=== PATIENT | female | born 1945 | race Caucasian/White ===

== ENCOUNTER 2018-10-17 07:47 | Inpatient (IN) ==
--- NOTE | 2018-10-12 14:12 | MH ---
cc: Zina Gutierrez MD DATE OF ADMISSION: 10/17/2018 ADMITTING DIAGNOSIS: Osteoarthritic degeneration left knee, now being admitted for left total knee arthroplasty. HISTORY OF PRESENT ILLNESS: This pleasant 73-year-old female is being admitted today for left total knee arthroplasty due to severe painful osteoarthritic degeneration of the left knee. OTHER PAST HISTORY: She has already had a right total knee. She has a history of hypertension. CURRENT MEDICATIONS: 1. Diclofenac stopped before surgery. 2. Lisinopril. REVIEW OF SYSTEMS: Noncontributory. FAMILY HISTORY: Noncontributory. SOCIAL HISTORY: She does not smoke or drink. ALLERGIES: NO KNOWN ALLERGIES. PHYSICAL EXAMINATION: GENERAL: We find a 73-year-old female well-developed, well nourished, well oriented x 3, complaining of pain in the left knee. VITAL SIGNS: Blood pressure 130/78, pulse 64 and regular, respirations 16, temperature 97.7, pulse oximetry 96% on room air. HEENT: Eyes PERRLA, EOMI. Ears, nose, mouth clear. NECK: Supple. LUNGS: Clear. HEART: Regular rate. ABDOMEN: Soft, positive bowel sounds, nontender. EXTREMITIES: Left knee has crepitance on range of motion. She is neurovascularly intact to her toes. IMPRESSION: Severe painful osteoarthritic degeneration of the left knee. PLAN: Admission for left total knee arthroplasty today. The patient plans on going to rehabilitation after her surgical stay in the hospital. MD KATY Holland/zeenat , 01:45 PM , 01:51 PM
[2018-10-17] MEDS ORDERED: Metoprolol Tartrate 25 MG Tablet PO ONE (08:42)
[2018-10-17] MEDS ORDERED: Chlorhexidine Gluconate 2% 1 Pack (2 Cloths) TOPICAL ONE (08:42)
[2018-10-17] MEDS ORDERED: Chlorhexidine 4% Topical 120 APPLIC/120 ML Bottle TOPICAL SCH (08:45)
[2018-10-17] MEDS ORDERED: Post-op Orders (for Pharmacy) OTHER STA (08:47)
[2018-10-17] MEDS ORDERED: Bisacodyl 10 MG Supp RECTAL PRN (08:47)
[2018-10-17] MEDS ORDERED: Vancomycin Inj 1,000 MG in Sodium Chlor 0.9% Inj 250 ML IV.SIG SCH (09:00)
[2018-10-17] MEDS ORDERED: Sodium Chlor 0.9% Inj 80 ML, Bupivacaine Liposo PF 1.3% Inj 20 ML, Bupivacaine PF 0.25%... P-ARTICULR SCH ×3 (09:00)
[2018-10-17] MEDS ORDERED: Sodium Chlor 0.9% Inj 500 ML IV.SIG SCH (09:00)
[2018-10-17] MEDS ORDERED: Non-Formulary Drug (Coq10 (Ubiquinol) [Coq10 (Ubiquinol)] 200 MG) PO SCH (09:00)
[2018-10-17] MEDS ORDERED: MILK THISTLE 300 MG PO SCH (09:00)
[2018-10-17] MEDS ORDERED: Non-Formulary Drug (Glucosamine-Chondroitin [Glucosamine-Chondroitin] 1 CAP) PO SCH (09:00)
[2018-10-17] MEDS ORDERED: Non-Formulary Drug (Omega 3-Dha-Epa-Fish Oil [Omega-3] 1 CAP) PO SCH (09:00)
[2018-10-17] MEDS ORDERED: ceFAZolin 2 GM Premix Inj 2 GM/50 ML PIGGYBACK IV.SIG SCH (09:00)
[2018-10-17] MEDS ORDERED: TRANEXAMIC ACID IV.SIG SCH ×2 (09:00→10:00)
[2018-10-17] MEDS ORDERED: Calcium Carbonate 500 MG Tablet PO SCH (09:00)
[2018-10-17] MEDS ORDERED: SODIUM CHLOR 0.9% IV.SIG SCH ×2 (09:00→10:00)
[2018-10-17] MEDS ORDERED: [UNRECOGNIZED DRUG - OTHER] PO SCH (09:00)
[2018-10-17] MEDS ORDERED: TURMERIC PO SCH (09:00)
[2018-10-17] MEDS ORDERED: [UNRECOGNIZED DRUG - OTHER] PO SCH (09:00)
[2018-10-17] MEDS ORDERED: Morphine Sulfate Inj 2 MG/ML Vial IV.PUSH PRN (09:15)
[2018-10-17] MEDS ORDERED: Neostigmine Inj 5 MG/5 ML Syringe IV.PUSH ONE (12:12)
[2018-10-17] MEDS ORDERED: Lidocaine PF 1% Inj 5 ML Syringe I-DERMAL ONE (12:12)
[2018-10-17] MEDS ORDERED: Glycopyrrolate Inj 1 MG/5 ML Syringe IV.PUSH ONE (12:12)
[2018-10-17] MEDS ORDERED: Tranexamic Acid Inj 1,000 MG in Sodium Chlor 0.9% Inj 100 ML IV.SIG SCH (13:00)
[2018-10-17] MEDS ORDERED: fentaNYL Citrate Inj 100 MCG/2 ML Ampul ONE (14:49)
--- NOTE | 2018-10-17 15:02 | XR ---
EXAM DATE: 10/17/2018 2:51 PM EST AGE/SEX: 73 years / Female INDICATIONS: Post op left total knee replacement. CLINICAL DATA: This is the patient's initial encounter. Patient reports that signs and symptoms have been present for 1 day and indicates a pain score of Nonresponsive. MEDICAL/SURGICAL HISTORY: Non-responsive. Non-responsive. COMPARISON: . FINDINGS: Left knee arthroplasty in place. Arthroplasty components are in anatomic alignment. No significant javier ny fracture. Immediate postsurgical soft tissue changes. CONCLUSION: 1. Left knee arthroplasty in near-anatomic alignment without acute fracture. Electronically signed by: David Garcia MD 10/17/2018 3:00 PM EST
[2018-10-17] MEDS ORDERED: *Ondansetron Inj 4 MG/2 ML Vial PERIprocedural Use ONLY ONE (15:03)
[2018-10-17] MEDS ORDERED: *morphine SULFATE 4 MG/ML PERIprocedure ONLY ONE ×2 (15:07→15:15)
[2018-10-17] MEDS ORDERED: *Promethazine Inj 25 MG/ML Vial PERIprocedural use ONLY ONE (15:16)
--- NOTE | 2018-10-17 15:21 | MP ---
cc: Zina Gutierrez MD DATE OF OPERATION: 10/17/2018 PREOPERATIVE DIAGNOSIS: Osteoarthritic degeneration, left knee POSTOPERATIVE DIAGNOSIS: Osteoarthritic degeneration, left knee. SURGERY PERFORMED: Left total knee arthroplasty using Consensus components, size 4 femur, 4 tibia, and 2 patella with 2 batches of antibiotic cement along with a 14 insert. SURGEON: Zina Gutierrez MD CHEMIST INSTRUMENTATION: Sita Toledo APRN ANESTHESIA: General intubation. PROCEDURE: After successful induction of anesthesia, the patient is placed on the operating room table in the supine position. The knee is prepped and draped in the usual manner. A tourniquet is inflated at the upper thigh and set to 300 mmHg pressure after exsanguination of the lower extremity. A longitudinal incision is made extending from 3 inches proximal to the superior pole of the patella, across the patella in longitudinal fashion, and down past the insertion of the tibial tubercle into the proximal tibia. The incision is carried down through subcutaneous tissue along the medial aspect of the patella and retinaculum, down through the capsule to expose the knee joint. The patella and patellar tendon are freed up enough to allow the patella to be inverted and retracted off the lateral side of the knee joint. The knee joint is left exposed. Small osteophytes are removed. All soft tissue is removed to allow proper position of the femoral and tibial cutting jig guide. The first femoral jig is then inserted along the distal end of the femur after first measuring to decide whether this is a small, medium, or large component. The notch is then drilled and the tibial cutting guide inserted into the femoral cutting guide, along with the ankle brace to allow for proper measurement of the tibial cutting surface that needed to be resected. Pins are inserted into the tibial cutting jig and femoral cutting jig to hold them in place. An oscillating saw is then used to resect the surface of the tibia. The surface of the tibia is then completely removed using sharp and blunt dissection. The anterior and posterior cuts of the femur are then made as well using an oscillating saw through the cutting guide. All guides are then removed and the varus/valgus angulation cutting guide applied to the femur for proper measurement of the proper amount of valgus. The anterior cutting guide for the femur is then inserted at the anterior femoral cuts made. Next, the first block trial is inserted into the femur to allow for proper condyle drill holes to be made which are then made followed by removal of the bone between the condyles using an oscillating saw as well as the bone removed at the most posterior surface of the condyle. After this, this guide is removed and the chamfer cuts made using the chamfer cutting guide from both anterior and posterior. Next, the femoral trial is then inserted, the tibial surface reflected anterior to expose the tibial surface and a tibial stem guide is inserted after first measuring for a standard, standard plus, large, or large plus surface to be used. After the stem is impacted the trial tibial surface is applied followed by the trial meniscal components. After full range of motion is found with the appropriate length meniscal components varying the patella is prepared by resecting the posterior aspect of the patella using an oscillating saw, inserting a trial. The trial is then removed and the cruciate cutting guide applied using the bur to cut the cruciate cuts. After cruciate cuts are made all trials are removed. The wound is irrigated copiously with antibiotic solution and Water Pik and the actual components inserted into place using the aforementioned components. After the cement has hardened and the components are found to have full range of motion with no instability, the tourniquet is deflated, total tourniquet time being 42 minutes at 300 mmHg pressure. The wound again is irrigated copiously with antibiotic solution, meticulous hemostasis achieved. Two Autovac tubes inserted, followed by closure of the deep fascia with both running and interrupted #1 Vicryl suture, subcutaneous tissue approximated using interrupted 2-0 Vicryl sutures, and skin approximated with andra. Wet and dry dressing is applied to the wound followed by Xeroform gauze, sterile dressing and knee immobilizer. The patient tolerated the procedure well and left the Operating Room in satisfactory condition. ESTIMATED BLOOD LOSS: 100 mL. COUNTS: Sponge and suture counts were correct. COMPONENTS: The components used were Consensus components, size 4 femur, 4 tibia, and 2 patella with 2 batches of antibiotic cement along with a 14 insert. Meticulous hemostasis achieved and 120 mL of mixture of Exparel, normal saline, 0.25% Marcaine plain inserted around the knee joint for extra pain control. Deep fascia approximated with a running #2 Quill. Subcutaneous tissue approximated with a running 2-0 and 3-0 Quill and a Prineo dressing and knee immobilizer. No drain utilized. COUNTS: Sponge and suture counts were correct. The patient tolerated the procedure well and left the operating room in satisfactory condition. Sita Toledo APRN was present during the entire procedure to include patient positioning and the procedure. The medical necessity of a nurse practitioner programs assistant was indicated in this case due to the surgical complexity of the case itself. During the surgical case, the surgical nurse was working the back table while my neurosurgical nurse ELVIS was directly assisting me. J. MD KATY Buckley/es , 02:33 PM , 02:40 PM
[2018-10-17] MEDS: Multivitamin/Minerals Therapeutic Tablet PO SCH ×2 (16:20→20:58)
[2018-10-17] MEDS: Senna/Docusate Sodium 8.6/50 MG Tablet PO SCH ×2 (16:20→20:58)
[2018-10-17] MEDS: Calcium Carbonate 500 MG Tablet PO SCH ×2 (16:21→18:10)
[2018-10-17] MEDS: ceFAZolin 1 GM Premix Inj 1 GM/50 ML FROZ.PIGGY IV.SIG SCH (18:09)
[2018-10-17] MEDS: Lactobacillus Acidophilus/L. Spores Tablet PO SCH (18:10)
[2018-10-17] MEDS ORDERED: Lisinopril 20 MG Tablet PO SCH (21:00)
[2018-10-18] MEDS: ceFAZolin 1 GM Premix Inj 1 GM/50 ML FROZ.PIGGY IV.SIG SCH ×2 (01:10→06:46)
[2018-10-18 06:50] LABS: Hematocrit 38.5 % (35.0-46.0); Hemoglobin 12.9 gm/dL (11.6-15.3)
--- NOTE | 2018-10-18 08:16 | P.PNOP ---
Subjective Interval history: Pt comfortable today without complaints. Physical Exam Vital signs: Vital Signs 10/17/18 08:41 10/17/18 09:43 10/17/18 14:39 Temperature 97.7 F 97.8 F Pulse Rate 74 63 84 Respiratory Rate 16 14 Blood Pressure 140/77 150/68 H Pulse Oximetry 98 97 95 10/17/18 14:45 10/17/18 15:00 10/17/18 15:15 Temperature Pulse Rate 82 78 78 Respiratory Rate 14 14 16 Blood Pressure 147/65 H 138/76 132/70 Pulse Oximetry 95 95 94 L 10/17/18 15:30 10/17/18 15:45 10/17/18 16:40 Temperature 98.1 F 97.7 F Pulse Rate 75 74 66 Respiratory Rate 16 16 18 Blood Pressure 108/78 128/68 129/59 L Pulse Oximetry 94 L 95 94 L 10/17/18 21:08 10/18/18 00:00 10/18/18 04:00 Temperature 97.6 F 97.5 F L 97.9 F Pulse Rate 60 67 70 Respiratory Rate 18 18 18 Blood Pressure 144/64 H 135/63 138/63 Pulse Oximetry 93 L 93 L Intake & Output 10/17/18 10/18/18 10/18/18 18:59 06:59 18:59 Intake Total 1529 / 1529 1131 / 1131 Output Total 100 / 100 120 / 120 Balance 1429 / 1429 1011 / 1011 Weight 78.6 kg 88.6 kg Intake: IV 189 / 189 1021 / 1021 LR 1000 mL Inj 1,000 ML @ 80 29 / 29 971 / 971 mls/hr IV.CONT .[id number] [facility] Rx# :[id number] Cyklokapron Inj 1,000 MG In NS 110 / 110 Inj 100 ML @ 200 mls/hr IV.SIG ONCE [facility] Rx#:[id number] Ancef 1 GM Premix Inj 1 gm In 50 / 50 50 / 50 50 ml @ 100 mls/hr IV.SIG Q6H [facility] Rx#:[id number] Oral 240 / 240 110 / 110 Anesthesia Amount 1100 / 1100 Output: Urine 0 / 0 120 / 120 Estimated Blood Loss 100 / 100 Other: # Voids 1 2 Date of Last Bowel Movement 10/17/18 Weight On Admission 78.6 kg - Constitutional no acute distress Results - Labs CBC & Chem 7: 10/18/18 05:38 Laboratory Results - last 24 hr 10/17/18 10/18/18 09:15 05:38 Hgb 12.9 Hct 38.5 Blood Type A Negative Blood Type Recheck Required Antibody Screen Negative - Imaging Impressions Knee X-Ray 10/17/18 08:47 CONCLUSION: 1. Left knee arthroplasty in near-anatomic alignment without acute fracture. Assessment and Plan - Attending Attestation Attending Attestation: Dressing dry and intact. NV intact to toes. No calf tenderness. Plan dc to SNF when bed available.
[2018-10-18] MEDS: Senna/Docusate Sodium 8.6/50 MG Tablet PO SCH (08:47)
[2018-10-18] MEDS: Calcium Carbonate 500 MG Tablet PO SCH ×3 (08:48→17:11)
[2018-10-18] MEDS: Multivitamin/Minerals Therapeutic Tablet PO SCH (08:48)
[2018-10-18] MEDS: Lactobacillus Acidophilus/L. Spores Tablet PO SCH ×3 (08:48→17:11)
[2018-10-18 10:01] VITALS: RESP 16
[2018-10-18 18:29] VITALS: BP 126/58; PULSE 66; TEMP 98.4; O2SAT 94
== END 2018-10-18 18:09 ==
LOC: HSDI 07:47 → N06 15:55
PROVIDERS: ADMIT Surgery; ATTEND Surgery